=== PATIENT | female | born 2000 | race Caucasian/White ===

== ENCOUNTER → 2022-10-04 09:54 | Outpatient (CLI) | payer OTHER, SELFPAY ==
--- NOTE | ~2022-10-04 | US_ITS ---
EXAMINATION: US OB transvaginal DATE: 10/04/2022 10:29 INDICATION: Vaginal spotting during first trimester . TECHNIQUE: Real-time pelvic ultrasound utilizing both a transvaginal and transabdominal probe was pe rformed. The interpreting radiologist was not present for the study. COMPARISON: None. FINDINGS: The uterus measures 8.7 x 5.6 x 7.1 cm. There is an intrauterine gestational sac. A yolk sac and fet al pole are identified. The crown rump length measures 1.4 cm, which correlates with an estimated ges tational age of 7 weeks and 4 days. heart motion is identified measuring 154 beats per minute ( bpm) by M-mode Doppler. The right ovary measures 3.8 x 2.1 x 1.8 cm. The left ovary measures 3.9 x 1.7 x 1.7 cm. There is no free fluid in the pelvis. IMPRESSION: 1. Single living fetus with heart rate of 154 bpm. 2. Gestational age by ultrasound of 7 weeks 4 day(s) +/- 5 day(s) with ultrasound estimated date of delivery (PREET) of 05/19/2023. Reviewed, dictated and finalized at location B. [facility] IMPRESSION: 1. Single living fetus with heart rate of 154 bpm. 2. Gestational age by ultrasound of 7 weeks 4 day(s) +/- 5 day(s) with ultraso und estimated date of delivery (PREET) of 05/19/2023.
== END ==
PROVIDERS: PCP Advanced Practice Midwife; Visit Provider Advanced Practice Midwife
DX: O36.80X0 Pregnancy with inconclusive fetal viability, not applicable or unspecified (principal); Z3A.01 Less than 8 weeks gestation of pregnancy
CPT/HCPCS: 76817